=== PATIENT | female | born 1970 | race Caucasian/White ===

== ENCOUNTER 2017-12-05 09:41 | Day surgery (SDC) | payer OTHER ==
[~2017-12-05] VITALS: Ht 170.2 cm; Wt 72.6 kg
[2017-12-05] MEDS ORDERED: NORG1TAB19 PO (09:45)
--- NOTE | 2017-12-05 09:47 | ER Report ---
History and Physical Time Seen By MD: 09:47 HPI/ROS CHIEF COMPLAINT: Food bolus stuck in her esophagus HISTORY OF PRESENT ILLNESS: 47-year-old female with multiple prior similar episodes that did not require presentation to ER usually resolves with Coke presents with foreign body sensation in the esophagus at the base of the neck onset an hour ago in a small chunk of flat deli meat noted to be ham that did not seem to go down. She tried Coke with no improvement. No other concerns or complaints today. This occurred around 9 AM. REVIEW OF SYSTEMS: Respiratory: No cough, no dyspnea. Cardiovascular: No chest pain, no palpitations. Gastrointestinal: No vomiting, no abdominal pain. Musculoskeletal: No back pain. Allergies: Coded Allergies: No Known Drug Allergies (Unverified , 12/05/17) Home Meds Reported Medications Norgestimate-Ethinyl Estradiol (ORTHO TRI-CYCLEN LO) 1 Each Tablet, 1 EACH PO QDAY 12/05/17 Constitutional Vital Sign - Last 24 Hours 12/05/17 12/05/17 12/05/17 12/05/17 09:45 09:46 09:56 10:00 Temp 96.7 Pulse 85 94 Resp 16 B/P (MAP) 120/72 (88) 120/72 107/71 (83) Pulse Ox 98 99 O2 Delivery Blow-by 12/05/17 12/05/17 12/05/17 12/05/17 10:26 10:27 10:30 10:35 Pulse 84 87 B/P (MAP) 114/76 (89) 120/73 (89) Pulse Ox 97 95 12/05/17 12/05/17 12/05/17 12/05/17 10:50 11:00 11:05 11:05 Pulse 89 86 86 B/P (MAP) 99/68 (78) Pulse Ox 98 99 99 12/05/17 12/05/17 12/05/17 12/05/17 11:10 11:10 11:15 11:15 Pulse 81 81 86 86 Pulse Ox 97 97 100 100 12/05/17 12/05/17 12/05/17 12/05/17 11:20 11:20 11:25 11:30 Pulse 79 79 82 76 B/P (MAP) 108/69 (82) Pulse Ox 99 99 98 97 2/1312/05/17 12/05/17 12/05/17 11:35 11:40 11:45 11:50 Pulse 78 76 90 89 Pulse Ox 98 97 98 98 12/05/17 12/05/17 12/05/17 12/05/17 11:55 12:00 12:05 12:10 Pulse 85 85 87 B/P (MAP) 104/71 (82) Pulse Ox 96 98 98 99 12/05/17 12/05/17 12/05/17 12:15 12:20 12:25 Pulse 90 87 84 Pulse Ox 96 97 98 Intake and Output 12/05/17 12/05/17 12/06/17 15:00 23:00 07:00 Intake Total 1000 ml Balance 1000 ml Physical Exam General Appearance: [The patient is alert, has no immediate need for airway protection and no current signs of toxicity.] No acute distress Eyes: Pupils equal and round no injection. Respiratory: Chest is non tender, lungs are clear to auscultation. Cardiac: regular rate and rhythm no murmurs gallops or rubs Gastrointestinal: Abdomen is soft and non tender, no masses, bowel sounds normal. Musculoskeletal: Neck: Neck is supple and non tender. Extremities have full range of motion and are non tender. Skin: No rashes or lesions. No edema DIFFERENTIAL DIAGNOSIS: After history and physical exam differential diagnosis was considered for food bolus stuck in the esophagus, anxiety, no signs of chest pain ACS or [place]. Medical Decision Making Data Points Result Diagram: 12/05/17 1010 12/05/17 1010 Laboratory Hematology Test 12/05/17 10:10 Red Blood Count 4.71 M/uL (4.17-5.56) Mean Corpuscular Volume 86.7 fL (80.0-96.0) Mean Corpuscular Hemoglobin 29.5 pg (26.0-33.0) Mean Corpuscular Hemoglobin Concent 34.0 g/dL (32.0-36.0) Red Cell Distribution Width 13.0 % (11.5-14.5) Mean Platelet Volume 9.1 fL (7.2-11.1) Neutrophils (%) (Auto) 76.4 % (39.4-72.5) Lymphocytes (%) (Auto) 13.3 % (17.6-49.6) Monocytes (%) (Auto) 4.2 % (4.1-12.4) Eosinophils (%) (Auto) 4.2 % (0.4-6.7) Basophils (%) (Auto) 1.9 % (0.3-1.4) Nucleated RBC Relative Count (auto) 0.0 /100WBC Neutrophils # (Auto) 7.6 K/uL (2.0-7.4) Lymphocytes # (Auto) 1.3 K/uL (1.3-3.6) Monocytes # (Auto) 0.4 K/uL (0.3-1.0) Eosinophils # (Auto) 0.4 K/uL (0.0-0.5) Basophils # (Auto) 0.2 K/uL (0.0-0.1) Nucleated RBC Absolute Count (auto) 0.00 K/uL Sodium Level 139 mmol/L (137-145) Potassium Level 4.1 mmol/L (3.5-5.0) Chloride Level 106 mmol/L (98-107) Carbon Dioxide Level 23 mmol/L (22-31) Blood Urea Nitrogen 11 mg/dl (7-18) Creatinine 1.00 mg/dl (0.52-1.04) Glomerular Filtration Rate Calc 60.0 Random Glucose 94 mg/dl (75-110) Calcium Level 8.8 mg/dl (8.4-10.2) Chemistry Test 12/05/17 10:10 White Blood Count 10.0 k/uL (4.5-11.0) Red Blood Count 4.71 M/uL (4.17-5.56) Hemoglobin 13.9 g/dL (12.0-16.0) Hematocrit 40.8 % (34.0-47.0) Mean Corpuscular Volume 86.7 fL (80.0-96.0) Mean Corpuscular Hemoglobin 29.5 pg (26.0-33.0) Mean Corpuscular Hemoglobin Concent 34.0 g/dL (32.0-36.0) Red Cell Distribution Width 13.0 % (11.5-14.5) Platelet Count 284 K/uL (150-450) Mean Platelet Volume 9.1 fL (7.2-11.1) Neutrophils (%) (Auto) 76.4 % (39.4-72.5) Lymphocytes (%) (Auto) 13.3 % (17.6-49.6) Monocytes (%) (Auto) 4.2 % (4.1-12.4) Eosinophils (%) (Auto) 4.2 % (0.4-6.7) Basophils (%) (Auto) 1.9 % (0.3-1.4) Nucleated RBC Relative Count (auto) 0.0 /100WBC Neutrophils # (Auto) 7.6 K/uL (2.0-7.4) Lymphocytes # (Auto) 1.3 K/uL (1.3-3.6) Monocytes # (Auto) 0.4 K/uL (0.3-1.0) Eosinophils # (Auto) 0.4 K/uL (0.0-0.5) Basophils # (Auto) 0.2 K/uL (0.0-0.1) Nucleated RBC Absolute Count (auto) 0.00 K/uL Glomerular Filtration Rate Calc 60.0 Calcium Level 8.8 mg/dl (8.4-10.2) ED Course/Re-evaluation ED Course 12/05/2017 12:18:59 pm no improvement thus far surgery johanna and will see the patient here in the emergency department shortly. Decision to Disposition Date: Dec 05, 2017 Decision to Disposition Time: 13:08 Depart Departure Latest Vital Signs Vital Signs Date Time Temp Pulse Resp B/P (MAP) Pulse Ox O2 Delivery O2 Flow Rate FiO2 12/05/17 12:25 84 98 12/05/17 12:00 104/71 (82) 12/05/17 09:46 96.7 16 Blow-by Impression: Primary Impression: Food impaction of esophagus Condition: Improved Disposition: ADMIT FROM ER TO OR Referrals: ULI VALENZUELA MD (PCP) Problem Qualifiers Primary Impression: Food impaction of esophagus Encounter type: initial encounter Qualified Codes: T18.128A - Food in esophagus causing other injury, initial encounter EUGENE ORTIZ MD Dec 05, 2017 09:47
[2017-12-05] MEDS ORDERED: GLUCAGON 1 MG KIT IV ONE (09:55)
[2017-12-05] MEDS ORDERED: METOCLOPRAMIDE 10 MG/2 ML SDV IVP ONE (09:55)
[2017-12-05] MEDS ORDERED: NITROGLYCERIN 0.4 MG SUBL SL ONE (09:55)
[2017-12-05] MEDS ORDERED: HYOSCYAMINE SULF*0.125 MG SUBL SL ONE (09:55)
[2017-12-05] MEDS ORDERED: NS(*) 0.9% 1000 ML BAG 1,000 ML IV ONE (10:25)
[2017-12-05 10:29] LABS: PLATELET COUNT, AUTOMATED 284 K/uL (150-450)
[2017-12-05] MEDS ORDERED: LIDOCAINE 2% VISC SLN 15ML UDC PO ONE (10:45)
[2017-12-05] MEDS ORDERED: ATRO/SCOPOL/HYOSCY/PB 5 ML ELX PO ONE (10:45)
[2017-12-05] MEDS ORDERED: MAG HYD/AL HYD/SIMETH 30ML UDC PO ONE ×2 (10:45→15:40)
--- NOTE | 2017-12-05 10:52 | RADIOLOGY IMAGING REPORT ---
FACILITY: [facility] PATIENT NAME: Faiza Mathur : 1970 MR: [id number] V: [id number] EXAM DATE: ORDERING PHYSICIAN: EUGENE ORTIZ TECHNOLOGIST: Location: [facility] - [place] Patient: Faiza Mathur : 1970 Visit/Account:[id number] Date of Sevice: 12/05/2017 EXAMINATION: Portable AP Chest 12/05/2017 9:55 AM HISTORY: food bolus. Please of ham is potentially stuck in throat. COMPARISON: None FINDINGS: Cardiomediastinal contours: Normal cardiomediastinal contours. No visible foreign material. Lungs and pleura: Normally aerated. No aspiration evident. Pleural spaces are clear. Bones/soft tissues: Normal IMPRESSION: Unremarkable portable chest. Report Dictated By: Dallin Travis MD at 12/05/2017 10:47 AM Report E-Signed By: Dallin Travis MD at 12/05/2017 10:49 AM WSN:[email or web address]
[2017-12-05] MEDS ORDERED: FAMOTIDINE(*) 20MG/50ML PREMIX 50 ML IVPB ONE (12:25)
[2017-12-05] MEDS ORDERED: NORMOSOL R SOLN(*) 1000 ML BAG 1,000 ML IV PRN (12:25)
--- NOTE | 2017-12-05 13:05 | General Surgery 1 H&P ---
History of Present Illness Chief Complaint cant swallow History of Present Illness 47 yo healthy female with a several month history of dysphagia. occasional heartburn. no weight loss. no family history of esophageal cancer. ot was eating ham at 6:30 am and then could not swallow. History Other Past Surgeries: back, knees Home Meds Reported Medications Norgestimate-Ethinyl Estradiol (ORTHO TRI-CYCLEN LO) 1 Each Tablet, 1 EACH PO QDAY 12/05/17 Allergies: Coded Allergies: No Known Drug Allergies (Unverified , 12/05/17) Review of Systems All Systems Reviewed/Normal: Yes Exam Vital Signs Date Time Temp Pulse Resp B/P (MAP) Pulse Ox O2 Delivery O2 Flow Rate FiO2 12/05/17 12:35 99 12/05/17 12:30 96 115/79 (91) 12/05/17 09:46 96.7 16 Blow-by General Appearance: Alert GI: Abd Soft and Non-Tender Medical Decision Making Data Points Result Diagram: 12/05/17 1010 12/05/17 1010 Assessment and Plan Problems: (1) Esophageal obstruction due to food impaction Assessment & Plan: egd and removal of foreign body and possible dilation Copies to: HORACE HARO MD Venous Thromboembolism Antithrombotics Is Pt On Any Antithrombotics?: No HORACE HARO MD Dec 05, 2017 13:05
[2017-12-05] MEDS ORDERED: fentaNYL CITR 100 MCG/2 ML AMP ONE (13:06)
[2017-12-05] MEDS ORDERED: PROPOFOL EMUL(*) 10MG/ML 20 ML 20 ML ONE ×4 (13:07→13:47)
[2017-12-05] MEDS ORDERED: LIDOCAINE MPF 1% 5 ML VIAL ONE (13:07)
--- NOTE | 2017-12-05 13:13 | Post Operative Progress Note ---
Post Operative Progress Note Date: Dec 05, 2017 Time: 14:08 Surgeon: alexsandra Anesthesia: dr reis Pre-Op Diagnosis: esophageal obstruction Post-Op Diagnosis: same Procedure(s): egd and removal of foreign body. and balloon dilation toe 10 mm HORACE HARO MD Dec 05, 2017 13:13
[2017-12-05] MEDS ORDERED: DEXAMETHASONE SOD 4 MG/ML VIAL ONE (13:21)
[2017-12-05] MEDS ORDERED: ONDANSETRON 4 MG/2 ML VIAL ONE (13:24)
[2017-12-05] MEDS ORDERED: PANT40TA65 PO (14:10)
--- NOTE | 2017-12-05 14:11 | Short(Outpt) Discharge Summary ---
Discharge Summary Reason for Hosp/Final Diag: (1) Esophageal obstruction due to food impaction Hospital Course & Plan: egd and removal of foreign body and possible dilation, food stuffs removed from distal esophagus , balloon dilation to 10 mm Departure Discharge to: Home Discharge Instructions Home Meds Reported Medications Norgestimate-Ethinyl Estradiol (ORTHO TRI-CYCLEN LO) 1 Each Tablet, 1 EACH PO QDAY 12/05/17 Diet: Regular Activity: As Tolerated Special Instructions: call if symptoms recur HORACE HARO MD Dec 05, 2017 14:11
[2017-12-05 14:48] VITALS: BP 107/68
[2017-12-05 15:00] VITALS: BP 111/69
[2017-12-05] MEDS ORDERED: BARIUM SULFATE 176 GM BTL PO ONE (15:12)
[2017-12-05] MEDS ORDERED: DIATRIZOATE MEGL/DIATRIZOA SOD 120 ML SOLN PO ONE (15:12)
[2017-12-05 15:30] VITALS: BP 103/64
[2017-12-05] MEDS ORDERED: PANTOPRAZOLE SOD 40 MG TABEC PO ONE (15:40)
[2017-12-05 15:51] VITALS: BP 110/68
[2017-12-05 15:53] VITALS: BP 110/67
--- NOTE | 2017-12-05 16:30 | RADIOLOGY IMAGING REPORT ---
FACILITY: [facility] - [place] PATIENT NAME: Faiza Mathur : 1970 MR: [id number] V: [id number] EXAM DATE: ORDERING PHYSICIAN: HORACE HARO TECHNOLOGIST: Location: [facility] Patient: Faiza Mathur : 1970 Visit/Account:[id number] Date of Sevice: 12/05/2017 Exam type: ESOPHAGRAM History: Recent food impaction status post EGD, chest pain Comparison: None. Findings: Fluoroscopy was used for the purposes of an esophagram. 0.9 minutes of fluoroscopy time was used for a total DAP of 585.11 microGy/m2. Patient was given full strength Gastrografin followed by thin barium. Esophageal motility was normal . The patient has a small hiatal hernia but no evidence for esophageal leak or perforation. No evid ence for aspiration. IMPRESSION: 1. Small hiatal hernia but no evidence for esophageal perforation or leak. Report Dictated By: Nathan Rowley MD at 12/05/2017 4:19 PM Report E-Signed By: Nathan Rowley MD at 12/05/2017 4:25 PM WSN:[email or web address]
--- NOTE | 2017-12-05 21:52 | OPERATIVE REPORT 1 ---
EVENT DATE: December 05, 2017 SURGEON: Speedy Guerra MD ANESTHESIOLOGIST: Kirk Angel MD ANESTHESIA: General. PREOPERATIVE DIAGNOSIS Esophageal obstruction secondary to a foreign body. POSTOPERATIVE DIAGNOSIS Esophageal obstruction secondary to a foreign body. PROCEDURE PERFORMED Esophagogastroduodenoscopy with removal of foreign body and balloon dilatation to 10 mm. DESCRIPTION OF PROCEDURE The patient was placed in the supine position and given general anesthetic. An endotracheal tube was then placed. We then passed the flexible gastroscope into the esophagus. There was foodstuff at the distal esophagus. We spent some time removing this piecemeal with the grasper and trying with the basket. We tried an overtube, but we could not get good suction on this, and then it did not work. Eventually we were able to loosen this foreign body. We were then able to slide a small balloon alongside it. We did dilatation to 10 mm. We were then able to get the food bolus to pass into the stomach. The scope then entered the stomach. We went through the pylorus and second and third portions of the duodenum which were normal. The duodenal bulb was normal. The pylorus was normal. The antrum was normal. The body of the stomach was normal. The scope was retroflexed. There were no fundic lesions. We pulled back through the obstructed site. There was some mucosal damage at the distal esophagus, so no further dilatation was performed. The more proximal esophagus appeared to be normal. [facility]
== END 2017-12-05 14:25 | disposition home or self-care (01) ==
LOC: ER 09:52 → OR 12:27
PROVIDERS: ATTEND Surgery
DX: T18.128A Food in esophagus causing other injury, initial encounter (principal)
CPT/HCPCS: 43247; 43249; 71045; 74220; 85025; 99285; J1100; J1610; J2001; J2405; J2704; J2765; J3010; J3490; J7030; 82310; 82374; 82435; 82565; 82947; 84132; 84295; 84520; 96361; 96374; 96375